=== PATIENT | male | born 1980 | race Caucasian/White ===

== ENCOUNTER 2025-02-20 22:59 | Emergency (ER) | payer MEDICARE, MEDICAID ==
[~2025-02-20] VITALS: Ht 182.9 cm; Wt 141.0 kg
[2025-02-20 23:05] VITALS: O2SAT 99
[2025-02-20 23:59] LABS: BASOPHILS % 0.6 % (0.0-2.0); EOSINOPHILS % 2.2 % (0.0-5.0); HEMATOCRIT. 43.3 % (42.0-52.0); HEMOGLOBIN. 14.2 g/dL (14.0-18.0); LYMPHOCYTES % 23.7 % (20.0-50.0); MEAN PLATELET VOLUME 8.8 fl (7.4-10.4); MONOCYTES % 7.8 % (2.0-8.0); NEUTROPHILS % 65.7 % (40.0-76.0); PLATELET 254 x1000/uL (130-400); RED BLOOD CELL COUNT 4.70 mill/uL (4.7-6.1); RED CELL DISTRIBUTION WIDTH 13.6 % (11.6-14.6)
[2025-02-21 00:06] LABS: CREATININE 0.8 mg/dL (0.6-1.3); UREA NITROGEN BLOOD 15 mg/dL (9-23)
[2025-02-21] MEDS ORDERED: KETOROLAC 15MG/ML VIAL IM ONE (00:30)
[2025-02-21] MEDS ORDERED: ACETAMINOPHEN 325MG TABLET PO ONE (00:30)
[2025-02-21] MEDS: LIDOCAINE 5% PATCH TOP SCH (03:25)
[2025-02-21] MEDS: ACETAMINOPHEN 325MG TABLET PO SCH (03:33)
[2025-02-21] MEDS: KETOROLAC 15MG/ML VIAL IM SCH (03:35)
[2025-02-21 09:02] VITALS: BP 130/77; PULSE 60; RESP 17; TEMP 36.2; O2SAT 99
== END 2025-02-21 09:02 | disposition home or self-care (01) ==
LOC: ER 22:59
DX: G44.309 Post-traumatic headache, unspecified, not intractable (principal); M25.511 Pain in right shoulder; M24.542 Contracture, left hand; M24.541 Contracture, right hand; M54.2 Cervicalgia; G82.20 Paraplegia, unspecified; Z88.1 Allergy status to other antibiotic agents; Z99.3 Dependence on wheelchair; W18.39XA Other fall on same level, initial encounter; Y93.89 Activity, other specified; Y92.89 Other specified places as the place of occurrence of the external cause; Y99.8 Other external cause status
CPT/HCPCS: 99285; 80048; 85025; 36415; 70450; 72125; 96372; J1885